=== PATIENT | female | born 1990 | race Caucasian/White ===

== ENCOUNTER 2019-11-19 15:44 | Emergency (ER) | payer OTHER ==
--- NOTE | 2019-11-19 16:03 | ERPHSYRPT ---
- History of Present Illness Time Seen by Provider: 11/19/19 16:03 Source: patient Exam Limitations: no limitations Physician History: 29 y/o white female presents with generalized body aches, headache, cough, decreased appetite and fever. 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 pt not eating or drinking well. no n/v/d. no abd pain. no neck pain. Presenting Symptoms: fever, cough, poor fluid intake, poor solids intake Timing/Duration: yesterday Severity of Pain-Max: moderate Severity of Pain-Current: moderate Associated Symptoms: cough, fever, headaches, loss of appetite, malaise Allergies/Adverse Reactions: No Known Drug Allergies Allergy (Unverified 11/19/19 16:08) Home Medications: Dextroamphetamine/Amphetamine [Adderall 20 mg Tablet] 20 mg PO DAILY 11/19/19 [ History] - Review of Systems Constitutional: Fever Eyes: No Symptoms Ears, Nose, & Throat: No Symptoms Respiratory: Cough Cardiac: No Symptoms Abdominal/Gastrointestinal: No Symptoms Genitourinary Symptoms: No Symptoms Musculoskeletal: Arthralgias, Myalgias Neurological: No Symptoms Psychological: No Symptoms Endocrine: No Symptoms Hematologic/Lymphatic: No Symptoms Immunological/Allergic: No Symptoms All Other Systems: Reviewed and Negative - Past Medical History Pertinent Past Medical History: Yes Neurological History: No Pertinent History ENT History: No Pertinent History Cardiac History: No Pertinent History Respiratory History: No Pertinent History Endocrine Medical History: No Pertinent History Musculoskeletal History: No Pertinent History GI Medical History: No Pertinent History History: No Pertinent History Psycho-Social History: No Pertinent History Female Reproductive Disorders: No Pertinent History - Past Surgical History Neuro Surgical History: No Pertinent History Cardiac: No Pertinent History Respiratory: No Pertinent History Gastrointestinal: No Pertinent History Genitourinary: No Pertinent History Musculoskeletal: No Pertinent History Female Surgical History: No Pertinent History - Nursing Vital Signs Nursing Vital Signs: Initial Vital Signs Temperature 102.1 F 11/19/19 16:03 Pulse Rate 110 H 11/19/19 16:03 Respiratory Rate 22 11/19/19 16:03 Blood Pressure 108/70 11/19/19 16:03 O2 Sat by Pulse Oximetry 98 11/19/19 16:03 Pain Scale Pain Intensity 6 - Physical Exam General Appearance: attentiveness nml, interactive, other (appears toxic) Head, Eyes, Nose, & Throat Exam: head inspection normal, PERRL, EOMI Ear Exam: bilateral ear: auricle normal, canal normal, TM normal Neck Exam: normal inspection, non-tender, supple, full range of motion Respiratory Exam: normal breath sounds, lungs clear, airway intact, No chest tenderness, No respiratory distress Cardiovascular Exam: tachycardia Gastrointestinal Exam: soft, normal bowel sounds, No tenderness Extremities Exam: normal inspection, normal range of motion, No evidence of injury Neurologic Exam: alert, cooperative, environment artist II-XII nml as tested Skin Exam: normal color, warm, dry Lymphatic Exam: No adenopathy SpO2 Interpretation: normal O2 Delivery: Room Air Ordered Tests: Active Orders 24 hr Category Date Time Status IV Insertion STAT Care 11/19/19 16:49 Active CHEST 1 VIEW (PORTABLE) Stat Exams 11/19/19 16:52 Completed BLOOD CULTURE Stat Lab 11/19/19 17:16 Received CBC W DIFF Stat Lab 11/19/19 17:11 Completed CMP Stat Lab 11/19/19 17:11 Completed CULTURE,URINE Stat Lab 11/19/19 20:20 Received HCG,QUALITATIVE URINE Stat Lab 11/19/19 20:19 Completed Lactic Acid Stat Lab 11/19/19 17:20 Completed F[place] Screen Stat Lab 11/19/19 17:11 Completed UA W/RFX UR CULTURE Stat Lab 11/19/19 20:20 Completed Medication Summary Discontinued Medications Generic Name Dose Route Start Last Admin Trade Name Cosmoq PRN Reason Stop Dose Admin Acetaminophen 650 mg 11/19/19 16:39 11/19/19 16:49 Tylenol 325 Mg PO 11/19/19 16:40 Not Given STAT STA Acetaminophen Confirm 11/19/19 16:45 Tylenol 325 Mg Administered 11/19/19 16:46 Dose 650 mg .ROUTE .STK-MED ONE Hydrocodone Bitart/Acetaminophen 10 ml 11/19/19 16:51 11/19/19 16:53 Hydrocodone-Acetamin 2.5-108/5 Ml Solution PO 11/19/19 16:52 10 ml STAT STA Administration Hydrocodone Bitart/Acetaminophen Confirm 11/19/19 16:51 Hydrocodone-Acetamin 2.5-108/5 Ml Solution Administered 11/19/19 16:52 Dose 10 ml .ROUTE .STK-MED ONE Sodium Chloride 1,000 mls @ 999 mls/hr 11/19/19 16:49 11/19/19 18:16 Sodium Chloride 0.9% 1000 Ml IV 11/19/19 17:49 Infused .Q1H1M STA Infusion Sodium Chloride Confirm 11/19/19 16:57 Sodium Chloride 0.9% 1000 Ml Administered 11/19/19 16:58 Dose 1,000 mls @ ud .ROUTE .STK-MED ONE Ibuprofen 600 mg 11/19/19 16:39 11/19/19 16:48 Motrin 600 Mg PO 11/19/19 16:40 600 mg STAT ONE Administration Ibuprofen Confirm 11/19/19 16:45 Motrin 600 Mg Administered 11/19/19 16:46 Dose 600 mg .ROUTE .STK-MED ONE Ondansetron HCl 4 mg 11/19/19 16:49 11/19/19 16:57 Zofran 4 Mg/2 Ml Vial IV 11/19/19 16:50 4 mg STAT STA Administration Ondansetron HCl Confirm 11/19/19 16:57 Zofran 4 Mg/2 Ml Vial Administered 11/19/19 16:58 Dose 4 mg .ROUTE .STK-MED ONE Oseltamivir Phosphate 75 mg 11/19/19 18:12 11/19/19 18:26 Tamiflu 75mg Capsule PO 11/19/19 18:13 75 mg STAT ONE Administration Oseltamivir Phosphate Confirm 11/19/19 18:25 Tamiflu 75mg Capsule Administered 11/19/19 18:26 Dose 75 mg PO .STK-[facility] ONE Lab/Rad Data: Laboratory Result Diagrams 11/19/19 17:11 11/19/19 17:11 Laboratory Results 11/19/19 11/19/19 11/19/19 Range/Units 20:20 20:19 17:25 WBC (4.0-10.5) K/mm3 RBC (4.1-5.4) M/mm3 Hgb (12.0-16.0) gm/dl Hct (35-47) % MCV (78-100) fl MCH (26-32) pg MCHC (32-36) g/dl RDW (11.5-14.0) % Plt Count (150-450) K/mm3 MPV (7.5-11.0) fl Gran % (36.0-66.0) % Eos # (Auto) (0-0.5) Absolute Lymphs (auto) (1.0-4.6) Absolute Monos (auto) (0.0-1.3) Lymphocytes % (24.0-44.0) % Monocytes % (0.0-12.0) % Eosinophils % (0.00-5.0) % Basophils % (0.0-0.4) % Absolute Granulocytes (1.4-6.9) Basophils # (0-0.4) Sodium (137-145) mmol/L Potassium (3.5-5.1) mmol/L Chloride (98-107) mmol/L Carbon Dioxide (22-30) mmol/L Anion Gap (5-15) MEQ/L BUN (7-17) mg/dL Creatinine (0.52-1.04) mg/dL Estimated GFR ML/MIN Glucose (74-106) mg/dL Lactic Acid (0.4-2.0) Calcium (8.4-10.2) mg/dL Total Bilirubin (0.2-1.3) mg/dL AST (14-36) U/L ALT (0-35) U/L Alkaline Phosphatase (38-126) U/L Serum Total Protein (6.3-8.2) g/dL Albumin (3.5-5.0) g/dL Urine Color OSVALDO (YELLOW) Urine Appearance CLOUDY (CLEAR) Urine pH 5.0 (5-6) Ur Specific Shiro 1.021 (1.005-1.025) Urine Protein NEGATIVE (Negative) Urine Ketones SMALL (NEGATIVE) Urine Blood NEGATIVE (0-5) Long/ul Urine Nitrite NEGATIVE (NEGATIVE) Urine Bilirubin NEGATIVE (NEGATIVE) Urine Urobilinogen NEGATIVE (0-1) mg/dL Ur Leukocyte Esterase NEGATIVE (NEGATIVE) Urine WBC (Auto) 6-10 (0-5) /HPF Urine RBC (Auto) 6-10 (0-2) /HPF U Hyaline Cast (Auto) 0-2 (0-2) /LPF U Epithel Cells (Auto) MODERATE (FEW) /HPF Urine Bacteria (Auto) RARE (NEGATIVE) /HPF Unidentified Crystals 25-50 (NEGATIVE) /HPF Urine Mucus (Auto) MANY (NEGATIVE) /HPF Urine Culture Reflexed YES (NO) Urine Glucose NEGATIVE (NEGATIVE) mg/dL Urine HCG, Qual NEGATIVE (Negative) Monoscreen (Negative) Influenza Type A Ag POSITIVE (NEGATIVE) Influenza Type B Ag NEGATIVE (NEGATIVE) RSV (PCR) NEGATIVE (Negative) Group A Strep Antibody NEGATIVE (NEGATIVE) 11/19/19 11/19/19 11/19/19 Range/Units 17:20 17:11 17:11 WBC (4.0-10.5) K/mm3 RBC (4.1-5.4) M/mm3 Hgb (12.0-16.0) gm/dl Hct (35-47) % MCV (78-100) fl MCH (26-32) pg MCHC (32-36) g/dl RDW (11.5-14.0) % Plt Count (150-450) K/mm3 MPV (7.5-11.0) fl Gran % (36.0-66.0) % Eos # (Auto) (0-0.5) Absolute Lymphs (auto) (1.0-4.6) Absolute Monos (auto) (0.0-1.3) Lymphocytes % (24.0-44.0) % Monocytes % (0.0-12.0) % Eosinophils % (0.00-5.0) % Basophils % (0.0-0.4) % Absolute Granulocytes (1.4-6.9) Basophils # (0-0.4) Sodium 135 L (137-145) mmol/L Potassium 3.8 (3.5-5.1) mmol/L Chloride 99 (98-107) mmol/L Carbon Dioxide 26 (22-30) mmol/L Anion Gap 13.5 (5-15) MEQ/L BUN 11 (7-17) mg/dL Creatinine 0.66 (0.52-1.04) mg/dL Estimated GFR > 60.0 ML/MIN Glucose 102 (74-106) mg/dL Lactic Acid 1.2 (0.4-2.0) Calcium 9.4 (8.4-10.2) mg/dL Total Bilirubin 0.90 (0.2-1.3) mg/dL AST 24 (14-36) U/L ALT 14 (0-35) U/L Alkaline Phosphatase 53 (38-126) U/L Serum Total Protein 7.9 (6.3-8.2) g/dL Albumin 4.5 (3.5-5.0) g/dL Urine Color (YELLOW) Urine Appearance (CLEAR) Urine pH (5-6) Ur Specific Shiro (1.005-1.025) Urine Protein (Negative) Urine Ketones (NEGATIVE) Urine Blood (0-5) Long/ul Urine Nitrite (NEGATIVE) Urine Bilirubin (NEGATIVE) Urine Urobilinogen (0-1) mg/dL Ur Leukocyte Esterase (NEGATIVE) Urine WBC (Auto) (0-5) /HPF Urine RBC (Auto) (0-2) /HPF U Hyaline Cast (Auto) (0-2) /LPF U Epithel Cells (Auto) (FEW) /HPF Urine Bacteria (Auto) (NEGATIVE) /HPF Unidentified Crystals (NEGATIVE) /HPF Urine Mucus (Auto) (NEGATIVE) /HPF Urine Culture Reflexed (NO) Urine Glucose (NEGATIVE) mg/dL Urine HCG, Qual (Negative) Monoscreen NEGATIVE (Negative) Influenza Type A Ag (NEGATIVE) Influenza Type B Ag (NEGATIVE) RSV (PCR) (Negative) Group A Strep Antibody (NEGATIVE) 11/19/19 Range/Units 17:11 WBC 6.2 (4.0-10.5) K/mm3 RBC 4.22 (4.1-5.4) M/mm3 Hgb 12.8 (12.0-16.0) gm/dl Hct 37.8 (35-47) % MCV 89.6 (78-100) fl MCH 30.3 (26-32) pg MCHC 33.9 (32-36) g/dl RDW 12.4 (11.5-14.0) % Plt Count 172 (150-450) K/mm3 MPV 12.8 H (7.5-11.0) fl Gran % 77.2 H (36.0-66.0) % Eos # (Auto) 0 (0-0.5) Absolute Lymphs (auto) 0.85 L (1.0-4.6) Absolute Monos (auto) 0.55 (0.0-1.3) Lymphocytes % 13.7 L (24.0-44.0) % Monocytes % 8.9 (0.0-12.0) % Eosinophils % 0.0 (0.00-5.0) % Basophils % 0.2 (0.0-0.4) % Absolute Granulocytes 4.78 (1.4-6.9) Basophils # 0.01 (0-0.4) Sodium (137-145) mmol/L Potassium (3.5-5.1) mmol/L Chloride (98-107) mmol/L Carbon Dioxide (22-30) mmol/L Anion Gap (5-15) MEQ/L BUN (7-17) mg/dL Creatinine (0.52-1.04) mg/dL Estimated GFR ML/MIN Glucose (74-106) mg/dL Lactic Acid (0.4-2.0) Calcium (8.4-10.2) mg/dL Total Bilirubin (0.2-1.3) mg/dL AST (14-36) U/L ALT (0-35) U/L Alkaline Phosphatase (38-126) U/L Serum Total Protein (6.3-8.2) g/dL Albumin (3.5-5.0) g/dL Urine Color (YELLOW) Urine Appearance (CLEAR) Urine pH (5-6) Ur Specific Shiro (1.005-1.025) Urine Protein (Negative) Urine Ketones (NEGATIVE) Urine Blood (0-5) Long/ul Urine Nitrite (NEGATIVE) Urine Bilirubin (NEGATIVE) Urine Urobilinogen (0-1) mg/dL Ur Leukocyte Esterase (NEGATIVE) Urine WBC (Auto) (0-5) /HPF Urine RBC (Auto) (0-2) /HPF U Hyaline Cast (Auto) (0-2) /LPF U Epithel Cells (Auto) (FEW) /HPF Urine Bacteria (Auto) (NEGATIVE) /HPF Unidentified Crystals (NEGATIVE) /HPF Urine Mucus (Auto) (NEGATIVE) /HPF Urine Culture Reflexed (NO) Urine Glucose (NEGATIVE) mg/dL Urine HCG, Qual (Negative) Monoscreen (Negative) Influenza Type A Ag (NEGATIVE) Influenza Type B Ag (NEGATIVE) RSV (PCR) (Negative) Group A Strep Antibody (NEGATIVE) - Progress Progress: improved Progress Note: 11/19/19 18:32 cxr-no acute process Counseled pt/family regarding: lab results, diagnosis, need for follow-up, rad results - Departure Departure Disposition: Home Clinical Impression: Influenza A Condition: Stable Critical Care Time: No Referrals: ROXIE SALAZAR MD [Primary Care Provider] - Additional Instructions: drink plenty of fluids. add ibuprofen for pain and fever. follow up with primary doctor for further management Prescriptions: Hydrocodone Bit/Acetaminophen [Hydrocodone-Acetaminophen Soln] 10 ml PO Q6H # 120 ml Oseltamivir 75 mg [Tamiflu 75MG Capsule] 75 mg PO BID #10 cap Prednisone 10 mg [Deltasone 10 mg] 10 mg PO TID #12 tablet
[2019-11-19] MEDS ORDERED: MOTRIN 600 MG PO ONE (16:39)
[2019-11-19] MEDS ORDERED: TYLENOL 325 MG PO STA (16:39)
[2019-11-19] MEDS ORDERED: MOTRIN 600 MG ONE (16:45)
[2019-11-19] MEDS ORDERED: TYLENOL 325 MG ONE (16:45)
[2019-11-19] MEDS ORDERED: Sodium Chloride 0.9% 1000 ML 1,000 ML IV STA (16:49)
[2019-11-19] MEDS ORDERED: Zofran 4 MG/2 ML VIAL IV STA (16:49)
[2019-11-19] MEDS ORDERED: HYDROCODONE-ACETAMIN 2.5-108/5 ML SOLUTION ONE (16:51)
[2019-11-19] MEDS ORDERED: HYDROCODONE-ACETAMIN 2.5-108/5 ML SOLUTION PO STA (16:51)
[2019-11-19] MEDS ORDERED: Zofran 4 MG/2 ML VIAL ONE (16:57)
[2019-11-19] MEDS ORDERED: Sodium Chloride 0.9% 1000 ML 1,000 ML ONE (16:57)
--- NOTE | 2019-11-19 17:09 | XRAY ---
Indication: Fever and cough. Comparison: None Portable chest demonstrates normal heart, lungs, and bony thorax with incidental left base calcified granuloma.
[2019-11-19 17:32] LABS: ALBUMIN 4.5 g/dL (3.5-5.0); ALKALINE PHOSPHATASE 53 U/L (38-126); ANION GAP 13.5 MEQ/L (5-15); BLOOD UREA NITROGEN 11 mg/dL (7-17); CHLORIDE 99 mmol/L (98-107); Calcium 9.4 mg/dL (8.4-10.2); Carbon Dioxide 26 mmol/L (22-30); Creatinine 1 0.66 mg/dL (0.52-1.04); Glucose 102 mg/dL (74-106); Potassium 3.8 mmol/L (3.5-5.1); SGOT/AST 24 U/L (14-36); SGPT/ALT 14 U/L (0-35); SODIUM 135 mmol/L (137-145); Total Protein 7.9 g/dL (6.3-8.2)
[2019-11-19 18:12] LABS: INFLUENZA A POSITIVE (NEGATIVE); INFLUENZA B NEGATIVE (NEGATIVE); RESPIRATORY SYNCTIAL VIRUS NEGATIVE (Negative)
[2019-11-19] MEDS ORDERED: Tamiflu 75MG Capsule PO ONE ×2 (18:12→18:25)
[2019-11-19 18:26] LABS: Absolute Neutrophil Ct (ANC) 4.78 (1.4-6.9); BASOPHIL % 0.2 % (0.0-0.4); Basophil (Absolute #) 0.01 (0-0.4); Eosinophil (Absolute #) 0 (0-0.5); Hematocrit 37.8 % (35-47); Hemoglobin 12.8 gm/dl (12.0-16.0); Lymphocyte (Absolute #) 0.85 (1.0-4.6); Lymphocytes % 13.7 % (24.0-44.0); Mean Cell Volume 89.6 fl (78-100); Mean Corpuscular Hemoglobin 30.3 pg (26-32); Mean Corpuscular Hgb Concent. 33.9 g/dl (32-36); Mean Platelet Volume 12.8 fl (7.5-11.0); Monocyte (Absolute #) 0.55 (0.0-1.3); Monocytes % 8.9 % (0.0-12.0); Neutrophil % 77.2 % (36.0-66.0); Platelet Count 172 K/mm3 (150-450); Red Blood Count 4.22 M/mm3 (4.1-5.4); Red Cell Distribution Width 12.4 % (11.5-14.0); White Blood Count 6.2 K/mm3 (4.0-10.5)
[2019-11-19 21:04] LABS: Appearance CLOUDY (CLEAR); Bacteria RARE /HPF (NEGATIVE); Bilirubin NEGATIVE (NEGATIVE); Blood NEGATIVE Ery/ul (0-5); Crystals Unidentified 25-50 /HPF (NEGATIVE); Epithelial Cells MODERATE /HPF (FEW); Glucose NEGATIVE (NEGATIVE); Hyaline Casts 0-2 /LPF (0-2); Ketones SMALL (NEGATIVE); Leukocyte Esterase NEGATIVE (NEGATIVE); Mucus MANY /HPF (NEGATIVE); Nitrite NEGATIVE (NEGATIVE); Protein,Urine Dip NEGATIVE (Negative); Specific Gravity 1.021 (1.005-1.025); Urobilinogen NEGATIVE mg/dL (0-1)
[2019-11-19 21:42] VITALS: BP 91/59; PULSE 80; O2SAT 97
== END 2019-11-19 21:42 | disposition home or self-care (01) ==
LOC: ED 15:44
DX: J09.X2 Influenza due to identified novel influenza A virus with other respiratory manifestations (principal); R51 Headache; R05 Cough
CPT/HCPCS: 36000; 36415; 71045; 80053; 81001; 83605; 84703; 85025; 86308; 87040; 87086; 87631; 87651; 96360; 96374; 99284; J2405; A9270-GY